=== PATIENT | male | born 1945 | race Two or more races ===

== ENCOUNTER 2024-07-03 11:11 | Inpatient (IN) | payer OTHER, MEDICARE ==
[~2024-07-03] VITALS: Ht 165.1 cm; Wt 79.1 kg
[2024-07-03 04:00] VITALS: BP 197/103; PULSE 102; RESP 20; TEMP 37.00296; O2SAT 98
[2024-07-03] MEDS: MECLIZINE 25MG TABLET PO ONE (12:15)
[2024-07-03 12:25] LABS: CHLORIDE 98 mEq/L (98-107); POTASSIUM 3.3 mEq/L (3.5-5.1); SODIUM 129 mEq/L (136-145)
[2024-07-03] MEDS: SODIUM CHLORIDE 0.9% 1,000 ML IV ONE ×2 (12:25→15:31)
[2024-07-03 12:26] LABS: CARBON DIOXIDE 24 mEq/L (21-32)
[2024-07-03 12:27] LABS: CALCIUM 10.4 mg/dL (8.7-10.4)
[2024-07-03 12:31] LABS: CREATININE 1.8 mg/dL (0.6-1.3); GLUCOSE 155 mg/dL (70-105)
[2024-07-03 12:32] LABS: UREA NITROGEN BLOOD 12 mg/dL (9-23)
[2024-07-03 12:33] LABS: INR 0.9; PROTHROMBIN TIME 10.6 sec (9.6-11.0)
[2024-07-03 12:38] LABS: TROPONIN I HIGH SENSITIVITY < 4 ng/L (3.0-53)
[2024-07-03 13:00] LABS: ALANINE AMINOTRANSFERASE 7 IU/L (10-49); ALBUMIN 3.9 g/dL (3.2-4.8); ASPARTATE AMINOTRANSFERASE 16 IU/L (<34); BILIRUBIN DIRECT 0.2 mg/dL (<=3.0); BILIRUBIN TOTAL 0.6 mg/dL (0.1-1.0); PROTEIN TOTAL 6.4 g/dL (6.0-8.3)
[2024-07-03 13:04] LABS: BASOPHILS % 0.4 % (0.0-2.0); EOSINOPHILS % 0.5 % (0.0-5.0); HEMATOCRIT. 40.4 % (42.0-52.0); HEMOGLOBIN. 13.3 g/dL (14.0-18.0); LYMPHOCYTES % 28.8 % (20.0-50.0); MEAN CORPUSCULAR HEMOGLOBIN 27.5 pg (28.0-32.0); MEAN CORPUSCULAR VOLUME 83.4 fL (80.0-94.0); MEAN PLATELET VOLUME 7.6 fl (7.4-10.4); MONOCYTES % 5.7 % (2.0-8.0); NEUTROPHILS % 64.6 % (40.0-76.0); PLATELET 268 x1000/uL (130-400); RED BLOOD CELL COUNT 4.84 mill/uL (4.7-6.1); RED CELL DISTRIBUTION WIDTH 14.6 % (11.6-14.6); WHITE BLOOD COUNT 12.6 x1000/uL (4.5-11.0)
[2024-07-03 13:05] LABS: LACTIC ACID 2.3 mmol/L (0.4-2.0)
[2024-07-03] MEDS: MECLIZINE 25MG TABLET PO NR (13:14)
[2024-07-03] MEDS: IOHEXOL-350 100 ML BOTTLE ONE (16:00)
[2024-07-03] MEDS ORDERED: ACETAMINOPHEN 325MG TABLET PO PRN ×2 (16:30)
[2024-07-03] MEDS ORDERED: ONDANSETRON HCL 4MG/2ML INJ IV PRN (16:30)
[2024-07-03] MEDS ORDERED: IPRATROPIUM/ALBUTEROL 0.5-3(2.5)MG/3ML NEB HHN PRN (17:00)
[2024-07-03] MEDS: SODIUM CHLORIDE 0.9% 1,000 ML IV SCH (17:00)
[2024-07-03 17:10] LABS: PHOSPHORUS 2.4 mg/dL (2.5-4.9)
[2024-07-03] MEDS: POTASSIUM CHLORIDE 20MEQ TABLET SR PO NR (18:20)
[2024-07-03 18:47] LABS: CLARITY URINE CLEAR (CLEAR); COLOR URINE YELLOW (YELLOW); GLUCOSE URINE NEGATIVE (NEGATIVE); KETONES URINE NEGATIVE (NEGATIVE); LEUKOCYTE ESTERASE URINE NEGATIVE (NEGATIVE); NITRITE URINE NEGATIVE (NEGATIVE); OCCULT BLOOD URINE NEGATIVE (NEGATIVE); PROTEIN URINE NEGATIVE (NEGATIVE); SPECIFIC GRAVITY URINE 1.032 (1.005-1.030)
[2024-07-03 18:53] LABS: SODIUM URINE RANDOM 56 mEq/L
[2024-07-03 19:00] LABS: *AMPHETAMINES SCREEN URINE NEGATIVE (NEGATIVE); *BARBITURATES SCREEN URINE NEGATIVE (NEGATIVE); *BENZODIAZEPINES SCREEN URINE NEGATIVE (NEGATIVE); *COCAINE SCREEN URINE NEGATIVE (NEGATIVE); CANNABINOID URINE SCREEN NEGATIVE (NEGATIVE); ECSTASY MDMA SCREEN URINE NEGATIVE (NEGATIVE); METHADONE URINE SCREEN NEGATIVE (NEGATIVE); OPIATES URINE SCREEN NEGATIVE (NEGATIVE); OSMOLALITY URINE 380 mOsm/kg (500-850); PHENCYCLIDINE URINE SCREEN NEGATIVE (NEGATIVE)
[2024-07-03] MEDS: MAGNESIUM OXIDE 400MG TABLET PO SCH (19:01)
[2024-07-03] MEDS: SODIUM CHLORIDE 0.9% IV NR (22:12)
[2024-07-03] MEDS: SODIUM PHOSPHATE IV NR (22:12)
[2024-07-03 23:14] LABS: TROPONIN I HIGH SENSITIVITY 27 ng/L (3.0-53)
[2024-07-04] MEDS: GUAIFENESIN 200MG/10ML SUGAR FREE UDC PO PRN (05:28)
[2024-07-04] MEDS: LORAZEPAM 0.5MG TABLET PO PRN (05:29)
[2024-07-04] MEDS: CLONIDINE 0.1MG TABLET PO PRN (05:31)
[2024-07-04 06:00] VITALS: BP 102/74
[2024-07-04 06:48] LABS: CALCIUM 9.5 mg/dL (8.7-10.4); CARBON DIOXIDE 24 mEq/L (21-32); CHLORIDE 107 mEq/L (98-107); POTASSIUM 3.9 mEq/L (3.5-5.1); SODIUM 137 mEq/L (136-145)
[2024-07-04 06:53] LABS: CREATININE 1.6 mg/dL (0.6-1.3)
[2024-07-04 06:54] LABS: GLUCOSE 107 mg/dL (70-105); TROPONIN I HIGH SENSITIVITY 29 ng/L (3.0-53); UREA NITROGEN BLOOD 21 mg/dL (9-23)
[2024-07-04 06:56] LABS: PHOSPHORUS 1.9 mg/dL (2.5-4.9)
[2024-07-04 07:11] LABS: HEMATOCRIT. 34.1 % (42.0-52.0); HEMOGLOBIN. 11.5 g/dL (14.0-18.0); MEAN CORPUSCULAR HEMOGLOBIN 28.3 pg (28.0-32.0); MEAN CORPUSCULAR HGB CONC 33.9 g/dL (31.0-37.0); MEAN CORPUSCULAR VOLUME 83.6 fL (80.0-94.0); MEAN PLATELET VOLUME 7.3 fl (7.4-10.4); PLATELET 206 x1000/uL (130-400); RED BLOOD CELL COUNT 4.08 mill/uL (4.7-6.1); RED CELL DISTRIBUTION WIDTH 14.9 % (11.6-14.6); WHITE BLOOD COUNT 11.8 x1000/uL (4.5-11.0)
[2024-07-04 07:41] LABS: DIFFERENTIAL COMMENT 1
[2024-07-04] MEDS: POTASSIUM-SODIUM PHOSPHATE POWDER PACKET PO NR (09:50)
[2024-07-04] MEDS: MAGNESIUM OXIDE 400MG TABLET PO SCH (09:50)
[2024-07-04 12:00] VITALS: BP 100/38; PULSE 82; RESP 18; TEMP 36.72516; O2SAT 99
[2024-07-04 12:20] VITALS: BP 100/38; PULSE 82; RESP 18; TEMP 36.7516
[2024-07-04 16:00] VITALS: BP 109/46; PULSE 73; RESP 18; TEMP 36.3918; O2SAT 97
[2024-07-04 17:19] LABS: PLATELET ESTIMATE NORMAL
[2024-07-04 20:00] VITALS: BP 116/79; PULSE 84; RESP 18; TEMP 37.00296; O2SAT 98
[2024-07-05] VITALS: BP 119/76; PULSE 75; RESP 17; TEMP 37.00296; O2SAT 98
[2024-07-05 04:00] VITALS: BP 126/85; PULSE 79; RESP 18; TEMP 36.83628; O2SAT 98
[2024-07-05 06:03] LABS: CARBON DIOXIDE 24 mEq/L (21-32); CHLORIDE 107 mEq/L (98-107); POTASSIUM 3.8 mEq/L (3.5-5.1); SODIUM 135 mEq/L (136-145)
[2024-07-05 06:04] LABS: CALCIUM 9.4 mg/dL (8.7-10.4)
[2024-07-05 06:07] LABS: CREATININE 1.3 mg/dL (0.6-1.3)
[2024-07-05 06:08] LABS: GLUCOSE 88 mg/dL (70-105)
[2024-07-05 06:09] LABS: UREA NITROGEN BLOOD 15 mg/dL (9-23)
[2024-07-05 06:11] LABS: BASOPHILS % 0.2 % (0.0-2.0); EOSINOPHILS % 1.5 % (0.0-5.0); HEMATOCRIT. 35.9 % (42.0-52.0); HEMOGLOBIN. 12.2 g/dL (14.0-18.0); LYMPHOCYTES % 10.7 % (20.0-50.0); MEAN CORPUSCULAR VOLUME 82.5 fL (80.0-94.0); MEAN PLATELET VOLUME 7.3 fl (7.4-10.4); MONOCYTES % 8.7 % (2.0-8.0); NEUTROPHILS % 78.9 % (40.0-76.0); PHOSPHORUS 2.2 mg/dL (2.5-4.9); PLATELET 200 x1000/uL (130-400); RED BLOOD CELL COUNT 4.36 mill/uL (4.7-6.1); RED CELL DISTRIBUTION WIDTH 15.1 % (11.6-14.6); WHITE BLOOD COUNT 8.7 x1000/uL (4.5-11.0)
[2024-07-05 06:44] LABS: HEPATITIS B SURFACE ANTIGEN NEGATIVE (Negative)
[2024-07-05 07:05] LABS: HEPATITIS C AB NON REACTIVE (Neg) (Negative)
[2024-07-05 08:00] VITALS: BP 112/44; PULSE 66; RESP 18; TEMP 36.83628; O2SAT 96
[2024-07-05] MEDS: ENOXAPARIN 40MG/0.4ML SYR SUBCUT SCH (09:37)
[2024-07-05 12:00] VITALS: BP 121/55; PULSE 92; RESP 20; TEMP 36.89184; O2SAT 98
[2024-07-05] MEDS: POTASSIUM-SODIUM PHOSPHATE POWDER PACKET PO NR (12:08)
[2024-07-05 16:00] VITALS: BP 111/41; PULSE 98; RESP 19; TEMP 36.89184; O2SAT 97
[2024-07-05 20:00] VITALS: BP 117/58; PULSE 95; RESP 19; TEMP 36.3918; O2SAT 97
[2024-07-06] VITALS: BP 116/55; PULSE 66; RESP 19; TEMP 36.3918; O2SAT 96
[2024-07-06 04:00] VITALS: BP 95/47; PULSE 94; RESP 18; TEMP 36.3918; O2SAT 96
[2024-07-06 07:23] LABS: BASOPHILS % 0.4 % (0.0-2.0); EOSINOPHILS % 1.9 % (0.0-5.0); HEMATOCRIT. 33.9 % (42.0-52.0); HEMOGLOBIN. 11.4 g/dL (14.0-18.0); LYMPHOCYTES % 15.4 % (20.0-50.0); MEAN CORPUSCULAR HEMOGLOBIN 27.8 pg (28.0-32.0); MEAN CORPUSCULAR HGB CONC 33.6 g/dL (31.0-37.0); MEAN CORPUSCULAR VOLUME 82.7 fL (80.0-94.0); MEAN PLATELET VOLUME 7.4 fl (7.4-10.4); MONOCYTES % 8.1 % (2.0-8.0); NEUTROPHILS % 74.2 % (40.0-76.0); PLATELET 213 x1000/uL (130-400); RED BLOOD CELL COUNT 4.11 mill/uL (4.7-6.1); RED CELL DISTRIBUTION WIDTH 14.8 % (11.6-14.6)
[2024-07-06 07:41] LABS: CHLORIDE 108 mEq/L (98-107); POTASSIUM 3.9 mEq/L (3.5-5.1); SODIUM 139 mEq/L (136-145)
[2024-07-06 07:42] LABS: CARBON DIOXIDE 25 mEq/L (21-32)
[2024-07-06 07:43] LABS: CALCIUM 9.3 mg/dL (8.7-10.4)
[2024-07-06 07:47] LABS: CREATININE 1.3 mg/dL (0.6-1.3); GLUCOSE 96 mg/dL (70-105)
[2024-07-06 07:48] LABS: UREA NITROGEN BLOOD 15 mg/dL (9-23)
[2024-07-06 07:50] LABS: PHOSPHORUS 1.6 mg/dL (2.5-4.9)
[2024-07-06 08:00] VITALS: BP 135/59; PULSE 93; RESP 18; TEMP 36.89184; O2SAT 94
[2024-07-06] MEDS: DOCUSATE SODIUM 100MG CAPSULE PO PRN (09:10)
[2024-07-06 12:00] VITALS: BP 147/58; PULSE 97; RESP 18; TEMP 36.114; O2SAT 97
[2024-07-06] MEDS: POTASSIUM PHOSPHATE 30 MMOL in DEXT 5% WATER 490 ML IV NR (15:00)
[2024-07-06 16:00] VITALS: BP 108/76; PULSE 97; RESP 18; TEMP 36.3918; TEMP 36.39180; O2SAT 98
[2024-07-06 17:22] VITALS: BP 147/58; PULSE 78; TEMP 97; O2SAT 97
== END 2024-07-06 20:45 | disposition home or self-care (01) | DRG 73 ==
LOC: ER 11:11 → EDBEDREQ 12:26 → 5WST 14:51 → EDBEDREQTM 14:56 → EDBEDREQ 14:56 → 7EST 07-04 12:16
PROVIDERS: ADMIT Internal Medicine; ATTEND Internal Medicine
DX: G90.89 Other disorders of autonomic nervous system (principal); R65.11 Systemic inflammatory response syndrome (SIRS) of non-infectious origin with acute organ dysfunction; E87.1 Hypo-osmolality and hyponatremia; N17.9 Acute kidney failure, unspecified; Z59.00 Homelessness unspecified; E87.20 Acidosis, unspecified; E87.6 Hypokalemia; E78.5 Hyperlipidemia, unspecified; E83.42 Hypomagnesemia; E83.39 Other disorders of phosphorus metabolism; I50.9 Heart failure, unspecified; E86.0 Dehydration; K59.00 Constipation, unspecified; I11.0 Hypertensive heart disease with heart failure; I25.10 Atherosclerotic heart disease of native coronary artery without angina pectoris; N40.0 Benign prostatic hyperplasia without lower urinary tract symptoms; R29.6 Repeated falls; Z91.199 Patient's noncompliance with other medical treatment and regimen due to unspecified reason; Z55.6 Problems related to health literacy
CPT/HCPCS: 36415; 70486; 71045; 71275; 74176; 76770; 80048; 80061; 80076; 80305; 81003; 83036; 83605; 83735; 83880; 83930; 83935; 84100; 84145; 84300; 84484; 85025; 85379; 86705; 86850; 86900; 87340; 92610; 93005; 93306; 93880; 97161; 97166; 99291; J1650; J3490; J7030; J7050; J7060; J8597; Q9967